=== PATIENT | female | born 1990 | race Caucasian/White ===

== ENCOUNTER → 2017-01-22 | Outpatient (CLI) | payer BC ==
[~2017-01-22] MED LIST: FLEXERIL 1010 MG/TAB PO; FLEXERIL5 MG PO; NORCO 325 MG-7.1 TAB PO; TRI-SPRINTEC 281 TAB PO
== END ==
LOC: COL.RAD 15:54
DX: R10.9 Unspecified abdominal pain (principal); R31.9 Hematuria, unspecified; R16.0 Hepatomegaly, not elsewhere classified; N83.8 Other noninflammatory disorders of ovary, fallopian tube and broad ligament; N28.89 Other specified disorders of kidney and ureter; Z90.49 Acquired absence of other specified parts of digestive tract

== ENCOUNTER → 2022-04-06 | Outpatient (CLI) | payer BC | LOC: COL.RAD 12:58 | DX: M54.12 Radiculopathy, cervical region (principal) ==

== ENCOUNTER → 2022-05-11 | Outpatient (CLI) | payer BC | LOC: COL.RAD 07:16 | DX: R22.32 Localized swelling, mass and lump, left upper limb (principal) | CPT/HCPCS: Q9967 ==